=== PATIENT | male | born 1935 | race Caucasian/White ===

== ENCOUNTER 2017-08-12 12:41 | Outpatient (CLI) | payer MEDICARE ==
--- NOTE | 2017-08-12 15:53 | MRI ---
MRI LUMBAR SPINE WITHOUT CONTRAST 08/12/17 Multiplanar and multisequential imaging lumbar spine obtained. HISTORY: Lumbar radiculopathy. Right hip pain and right lower extremity radiation. Lumbar vertebrae maintain height and alignment. There are degenerative disc changes at all levels. D egenerative osteophytes in the lumbar vertebrae. At L1-2, no disc bulge or protrusion. Mild facet arthrosis. No central canal or foraminal stenosis. At L2-3, annular fissure seen to the left of midline with broad based disc bulge and small protrusio n laterally to the left which does encroach into the left foramina. Facet hypertrophy. Mild central canal stenosis. At L3-4, mild diffuse disc bulge. Facet and ligamentous hypertrophy. Mild to moderate central canal stenosis. Bilateral foraminal narrowing due to disc bulge and facet hypertrophy. At L4-5, broad based disc bulge is more prominent. Facet hypertrophy is prominent. Severe central ca nal stenosis is present. Foramina are relatively well preserved. At L5-S1, diffuse disc bulge. Facet hypertrophy. No central canal stenosis. There is asymmetric disc osteophyte complex projecting to the right which appears to contact the lateral right L5 nerve root . There is a small disc osteophyte which projects inferiorly from the disc to the right of midline. Ju st inferior to the disc on axial images, this measures 8 to 9 mm AP dimension. This does displace th e traversing right S1 nerve root as seen on axial images. IMPRESSION: 1. Severe central canal stenosis at L4-5 as described above. 2. Broad based bulge at L5-S1 is seen. There is an inferior disc osteophyte projecting to the r ight of midline displacing the traversing right S1 nerve root within the canal. There is also disc o steophyte complex projecting laterally to the right at this level as described above. 3. Mild to moderate central canal stenosis at L3-4 as described. POS: [facility]
== END 2017-08-12 12:42 | disposition home or self-care (01) ==
LOC: TBSIIMAG 12:41
PROVIDERS: ATTEND Neurological Surgery
DX: M51.17 Intervertebral disc disorders with radiculopathy, lumbosacral region (principal); M48.061 Spinal stenosis, lumbar region without neurogenic claudication
CPT/HCPCS: 72148

== ENCOUNTER 2018-07-14 13:04 | Outpatient (CLI) | payer MEDICARE ==
--- NOTE | 2018-07-14 14:03 | RAD ---
LUMBAR SPINE SERIES THREE VIEWS WITH FLEXION AND EXTENSION: History: Back pain. Weakness in both legs. FINDINGS: The bones are demineralized. Vertebroplasty changes and compression changes of L4 are present with mi nimal bony retropulsion. There is very limited motion on either the flexion or extension views on thi s exam. Degenerative osteophyte changes are seen along the course of the spine. IMPRESSION: 1. Degenerative facet changes and moderate arthritic changes of the spine. 2. Vertebroplasty changes. Compression changes of L4. Limited motion was obtained on either of the fl exion or extension views. POS: [facility]
--- NOTE | 2018-07-14 14:48 | MRI ---
MRI LUMBAR SPINE: Date: 07-14-18 Provided Clinical History: Lumbar stenosis with claudication. FINDINGS: Comparison is made with the CT examination dated 04-01-18. Five lumbar vertebral bodies are again noted. Lumbar alignment is unchanged. Compression deformity in volving L4 is redemonstrated. Interval vertebroplasty change. Persistent marrow edema. Regional marro w signal appears otherwise unremarkable. Conus medullaris is normal in signal and terminates at an ap propriate level. Probable cyst involving the left kidney. L1-2: There is bilateral facet arthritis without significant central canal or foraminal stenosis appa rent. L2-3: There is disc space height loss and a broad based disc bulge with bilateral facet arthritis. Th ere is no significant central canal stenosis apparent. There is no significant foraminal narrowing ap parent. L3-4: There is a broad based disc bulge and bilateral facet arthritis. There is slight retropulsion o f the posterior cortex of the L4 vertebral body. These changes produce severe central canal stenosis. There is mild left foraminal narrowing. L4-5: There is a broad based disc bulge and bilateral facet arthritis. There is severe central canal stenosis. There is no significant foraminal narrowing apparent. L5-S1: There is bilateral facet arthritis and a broad based disc bulge without significant central ca nal or foraminal narrowing apparent. IMPRESSION: 1. Status post L4 vertebral plasty with persistent marrow edema. 2. Advanced multilevel lumbar degenerative changes producing areas of severe canal stenosis as descri bed above. POS: [facility]
== END 2018-07-14 13:05 | disposition home or self-care (01) ==
LOC: TBSIIMAG 13:04
PROVIDERS: ATTEND Neurological Surgery
DX: M48.062 Spinal stenosis, lumbar region with neurogenic claudication (principal); M47.896 Other spondylosis, lumbar region; M46.96 Unspecified inflammatory spondylopathy, lumbar region; M46.97 Unspecified inflammatory spondylopathy, lumbosacral region; Z98.890 Other specified postprocedural states
CPT/HCPCS: 72100; 72148

== ENCOUNTER 2018-08-16 06:21 | Inpatient (IN) | payer MEDICARE ==
[2018-08-15 11:33] VITALS: BMI 27.0
[2018-08-16] MEDS ORDERED: Levofloxacin 500 mg/D5W 100 ml Premix Bag ONE (08:04)
[2018-08-16] MEDS ORDERED: Clindamycin/D5W 900 mg/50 ml Premix Bag ONE (08:04)
[2018-08-16] MEDS ORDERED: Sodium Chloride 0.9% 10 ML ONE (08:15)
[2018-08-16] MEDS ORDERED: Fentanyl 100 MCG/2 ML VIAL ONE ×4 (09:06→12:16)
[2018-08-16] MEDS ORDERED: Meperidine HCl/PF 25 MG/ML VIAL SLOW IVP PRN (10:30)
[2018-08-16] MEDS ORDERED: Promethazine HCl 25 MG/ML VIAL SLOW IVP PRN (10:30)
[2018-08-16] MEDS ORDERED: Promethazine HCl 25 MG/ML VIAL IM PRN ×2 (10:30→12:02)
[2018-08-16] MEDS ORDERED: Milk Of Magnesia 30 ML UDCUP PO PRN (12:02)
[2018-08-16] MEDS ORDERED: diphenhydrAMINE 50 MG/ML VIAL IVP PRN (12:02)
[2018-08-16] MEDS ORDERED: Promethazine HCl 12.5 MG SUPP PR PRN (12:02)
[2018-08-16] MEDS ORDERED: diphenhydrAMINE 25 MG CAP PO PRN (12:02)
[2018-08-16] MEDS ORDERED: HYDROcodone/Acetaminophen 10/325 mg Tablet PO PRN ×2 (12:02)
[2018-08-16] MEDS ORDERED: tiZANidine HCl 4 MG TAB PO PRN (12:02)
[2018-08-16] MEDS ORDERED: Promethazine 25 MG TAB PO PRN (12:02)
[2018-08-16] MEDS ORDERED: traMADol HCl 50 MG TAB PO PRN ×2 (12:02)
[2018-08-16] MEDS ORDERED: Morphine 4 MG/ML VIAL SLOW IVP PRN (12:02)
[2018-08-16] MEDS ORDERED: Mag-Al 1200 mg/1200 mg/30 ML UDCUP PO PRN (12:02)
[2018-08-16] MEDS ORDERED: Ondansetron PF 4 MG/2 ML Vial SLOW IVP PRN (12:03)
--- NOTE | 2018-08-16 13:26 | OP ---
DATE OF PROCEDURE: 08/16/2018 SURGEON: Justino Figueredo M.D. BELLHOP: Christie Sosa PA-C. PROCEDURES: L3-L5 laminectomies, posterolateral arthrodesis L3-L5, pedicle screw instrumentation, de mineralized bone matrix, local morselized autograft L3-L5. PROCEDURE IN DETAIL: The patient was brought to the operating room and intubated. He was rolled in the prone position on gel-filled chest rolls. Incision was made exposing L3 through L5 and our level was confirmed by x-ray. We performed complete L5, complete L4 and inferior L3 laminectomies. A com plete decompression was achieved. We then placed pedicle screws at right L5 and right L3 using later al fluoroscopic guidance and the positioning was confirmed with rotational x-ray. A sreedhar was secured between the screws, connected by nuts, which were final tightened. The wound was then extensively ir rigated. Immaculate hemostasis was secured. A combination of demineralized bone matrix and local mo rselized autograft was laid over the posterolateral surfaces bilaterally for the purpose of arthrodes is. Vancomycin powder was applied and the wound was then closed in anatomic layers.
[2018-08-16] MEDS: Sodium Chloride 0.9% 1,000 ML IV SCH (14:04)
[2018-08-16] MEDS: Clindamycin/D5W 900 MG in Premix Bag 1 BAG IVPB SCH ×2 (14:07→21:47)
[2018-08-16] MEDS ORDERED: hydrALAZINE 20 MG/ML VIAL SLOW IVP PRN (14:22)
[2018-08-16] MEDS ORDERED: Cepastat Lozenges 1 LOZ PO PRN (14:22)
[2018-08-16] MEDS ORDERED: Sodium Chloride 0.65% Nasal 44 ML BOT EA NARE PRN (14:22)
[2018-08-16] MEDS ORDERED: Temazepam 15 MG CAP PO PRN (14:22)
[2018-08-16] MEDS ORDERED: Diabetic Tussin 200 MG/10 ML UDCUP PO PRN (14:22)
[2018-08-16] MEDS ORDERED: Eucerin (Mineral Oil/Petrolatum,White) 30 gm Jar TOP PRN (14:22)
[2018-08-16] MEDS ORDERED: Loperamide HCl 2 MG CAP PO PRN (14:22)
[2018-08-16] MEDS ORDERED: Senokot S 8.6-50 MG TAB PO PRN (14:22)
[2018-08-16] MEDS ORDERED: Artificial Tear Sol 15 ML BOT EA EYE PRN (14:22)
[2018-08-16] MEDS ORDERED: HYDROcodone/Acetaminophen 5/325 mg Tablet PO PRN (14:22)
[2018-08-16] MEDS ORDERED: Bisacodyl 10 MG SUPP PR PRN (14:22)
--- NOTE | 2018-08-16 15:04 | CON ---
DATE OF CONSULTATION: 08/16/2018 PRIMARY CARE PHYSICIAN: Dr. Lennox Beltran in [place]. PRIMARY ATTENDING: Justino Figueredo M.D. REASON FOR CONSULT: Medical comanagement. REASON FOR ADMISSION: Elective admission for L3-L5 laminectomy. HISTORY OF PRESENT ILLNESS: An 83-year-old male who has underlying history of coronary artery diseas e who has chronic low back pain with radicular symptoms. He has underlying history of lumbar stenosi s and radiculopathy. The patient was managed by Dr. Nunez as an outpatient basis and he had ep idural steroid injection. The patient reports that this is also gradually not effective and his back pain was gradually getting worse and affecting his quality of life. The patient was referred to [facility] and the patient had MRI as an outpatient basis as well as CT lumbar spine he had before. T he patient was electively admitted today for surgery. The patient underwent L3-L5 laminectomy, posterolateral arthrodesis L3-L5 and pedicle screw instrumen tation. Postoperatively, the patient was transferred to surgical floor. At that point, we were cons ulted for medical comanagement. At this point, the patient reports that he is feeling hungry, but he does not have any chest pain, pa lpitation, shortness of breath. He does have mild low back pain at surgery site and he has drain in place. He denies any constipation, diarrhea. He denies any abdominal pain. The patient reports jasmin t he did not take any his medicine today before surgery. REVIEW OF SYSTEMS: The following complete review of systems was negative, unless otherwise mentioned in the HPI or below: Constitutional: Weight loss or gain, ability to conduct usual activities. Sk in: Rash, itching. Eyes: Double vision, pain. ENT/Mouth: Nose bleeding, neck stiffness, pain, te nderness. Cardiovascular: Palpitations, dyspnea on exertion, orthopnea. Respiratory: Shortness of breath, wheezing, cough, hemoptysis, fever or night sweats. Gastrointestinal: Poor appetite, abdom inal pain, heartburn, nausea, vomiting, constipation, or diarrhea. Genitourinary: Urgency, frequenc y, dysuria, nocturia. Musculoskeletal: Pain, swelling. Neurologic/Psychiatric: Anxiety, depressio n. Allergy/Immunologic: Skin rash, bleeding tendency. Please see my HPI for pertinent positive and negative. All other review of system reviewed and negative except as mentioned in the HPI. PAST MEDICAL HISTORY: Coronary artery disease, history of prostate cancer, hypertension, dyslipidemi a, history of PVCs, lumbar stenosis with radiculopathy. PAST SURGICAL HISTORY: Appendicectomy, tonsillectomy, status post lumbar laminectomy, cardiac cathet erization in 2012 showed 3-vessel coronary artery disease. PAST PSYCHIATRIC HISTORY: Reviewed and negative. FAMILY HISTORY: Positive for coronary artery disease among several family members. ALLERGIES: PENICILLIN. CURRENT HOME MEDICATIONS: Nitroglycerin 0.4 mg sublingual p.r.n., aspirin 81 mg daily, Lipitor 80 mg p.o. at bedtime, multivitamin 1 tablet p.o. daily, fish oil 1 capsule daily, Metamucil daily, ramipr il 5 mg p.o. b.i.d., Coenzyme Q10 100 mg p.o. daily. SOCIAL HISTORY: The patient is and lives at home with family. No history of tobacco, alcoho l or illicit drug abuse. PHYSICAL EXAMINATION: VITAL SIGNS: Currently, blood pressure 110/70, pulse 72, respiratory rate 18, weight 192 pounds. GENERAL: The patient is currently alert and awake, in no obvious acute distress. HEAD: Normocephalic, atraumatic. EYES: Pupils round and reactive to light. Extraocular muscle intact. ENT: Oropharynx within normal limits. Moist mucous membranes. No oral lesion, no pharyngeal erythe ma, no exudate. NECK: Supple. No JVD, no thyromegaly, no carotid bruit. LUNGS: Clear to auscultation without any rhonchi or rales. CARDIAC: S1, S2 regular. No murmur, no gallop, no rub. ABDOMEN: Soft, bowel sounds present, nontender, nondistended. No organomegaly, no mass, no suprapub ic tenderness. BACK: Unremarkable. No CVA tenderness. EXTREMITIES: Upper extremities, passive movement of all joints are normal. Lower extremities, no ed sidney. Good distal pulsation. BACK: Drain in place. Surgical site covered with a dressing. NEUROLOGIC: Nonfocal examinations. HEMATOLOGIC: No lymphadenopathy. PSYCHIATRIC: Normal affect. SIGNIFICANT LABORATORY DATA: The patient does not have any recent labs at this point. Decisiv report reviewed. ASSESSMENT AND PLAN: 1. Status post lumbar laminectomy with L3-L5 laminectomy for lumbar stenosis and radiculopathy. The patient will be managed by primary team. The patient has drain in place. Drain care will defer to primary team. PT, OT and pain control while in hospital. 2. Hypertension, currently well controlled. If blood pressure permits, then we will continue ramipr il 5 mg p.o. b.i.d. We will hold his antihypertensive medication for blood pressure less than 120 sy stolic. 3. Dyslipidemia. Continue Lipitor 80 mg p.o. at bedtime. 4. Coronary artery disease, stable without any angina. We will hold aspirin because of back surgery . Continue nitroglycerin p.r.n. basis along with statin therapy. 5. Deep venous thrombosis prophylaxis, SCD boots. 6. Gastrointestinal prophylaxis, Pepcid 20 mg p.o. b.i.d. 7. Code status, the patient is full code. The patient's is surrogate decision maker. Disposition plan based on clinical course. Thank you for the consult. We will follow up with you while in hospital.
[2018-08-16] MEDS ORDERED: PROPOFOL 200 MG/20 ML VIAL ONE (17:48)
[2018-08-16] MEDS ORDERED: Dexamethasone 20 MG/5 ML VIAL ONE (17:48)
[2018-08-16] MEDS ORDERED: ePHEDrine/0.9% NaCl/PF SYRINGE 50 mg/10 ml ONE (17:48)
[2018-08-16] MEDS ORDERED: PHENYLEPHRINE-NS 100 MCG/ML 10 ML SYRINGE ONE (17:48)
[2018-08-16] MEDS ORDERED: Glycopyrrolate 0.2 MG/ML 5 ML SYRINGE ONE (17:48)
[2018-08-16] MEDS ORDERED: Ondansetron PF 4 MG/2 ML Vial ONE (17:48)
[2018-08-16] MEDS ORDERED: Lidocaine 1% PF 5 ML VIAL ONE (17:48)
[2018-08-16] MEDS: Famotidine 20 MG TAB PO SCH (21:47)
[2018-08-17] MEDS: Sodium Chloride 0.9% 1,000 ML IV SCH ×2 (04:34→04:35)
--- NOTE | 2018-08-17 07:21 | DIS ---
ATTENDING PHYSICIAN: Dr. Jutsino Figueredo DATE OF ADMISSION: 08/16/2018 DATE OF DISCHARGE: 08/17/2018 HOSPITAL COURSE: The patient is an 83-year-old male status post L3-L5 decompression and fu robert. Today is postoperative day #1. Overnight, the patient was admitted to the Med/Surgical floor where his pain was well controlled with p.o. medications, he was tolerating regular diet, and he was voiding appropriately. DOMITILA with drain was placed intraoperatively and has had 1095 mL out over the la st 12 hours. The patient has been up ambulating easily throughout the department. I am seeing the p atient at the bedside. He has no complaints at this time. The patient is sitting in the bed comfortably, awake, alert, no acute distress. He has free active r keshav of motion of all extremities. He has no focal neurologic deficits. His dressing is dry and int act. Incision is intact. We will plan to dismiss the patient to home. I have discussed home care and the patient has been pro vided with a TLSO brace, which he should wear for all out of bed activities. I have also provided th e patient with scripts for hydrocodone, Zanaflex and clindamycin. We will follow up the patient was in 2 weeks with x-rays. Please reach out to Neurosurgery for additional questions or concerns.
[2018-08-17 08:07] VITALS: BP 118/69
[2018-08-17] MEDS: Famotidine 20 MG TAB PO SCH (08:28)
--- NOTE | 2018-08-17 09:24 | PDOC.PN ---
- Subjective Encounter Start Date: 08/17/18 Encounter Start Time: 06:50 -: old records requested/rev Patient seen and examined. No new complaints. No overnight events - Objective Resuscitation Status: Resuscitation Status FULL:Full Resuscitation MAR Reviewed: Yes Vital Signs & Weight: Vital Signs (12 hours) Temp Pulse Resp BP Pulse Ox 08/17/18 08:00 93 L 08/17/18 07:11 97.4 F L 79 20 118/69 93 L 08/17/18 03:56 98.1 F 62 16 94/61 94 L 08/16/18 23:13 97.5 F L 64 16 97/63 92 L Weight Weight 194 lb I&O: 08/16/18 08/17/18 08/18/18 06:59 06:59 06:59 Intake Total 1500 Output Total 45 Balance 1455 Phys Exam - Physical Examination Constitutional: NAD HEENT: PERRLA, moist MMs, sclera anicteric Neck: no JVD, supple Respiratory: no wheezing, no rales, no rhonchi Cardiovascular: RRR, no significant murmur, no rub Gastrointestinal: soft, non-tender, no distention, positive bowel sounds Musculoskeletal: no edema, pulses present Neurological: non-focal, normal sensation, moves all 4 limbs Psychiatric: normal affect, A&O x 3 Skin: no rash, normal turgor Dx/Plan (1) S/P lumbar laminectomy Code(s): Z98.890 - OTHER SPECIFIED POSTPROCEDURAL STATES Status: Acute (2) CAD (coronary artery disease) Code(s): I25.10 - ATHSCL HEART DISEASE OF [place] CORONARY ARTERY W/O ANG PCTRS Status: Chronic (3) Dyslipidemia Code(s): E78.5 - HYPERLIPIDEMIA, UNSPECIFIED Status: Chronic (4) Hypertension Code(s): I10 - ESSENTIAL (PRIMARY) HYPERTENSION Status: Chronic (5) Lumbar stenosis with neurogenic claudication Code(s): M48.062 - SPINAL STENOSIS, LUMBAR REGION WITH NEUROGENIC CLAUDICATION Status: Chronic - Plan cont current plan of care, plan discussed w/ family * medication reviewed as below * symptomatic treatment * stable for discharge * resume home meds on discharge Review of Systems - Review of Systems ENT: negative: Ear Pain, Ear Discharge, Nose Pain, Nose Discharge, Nose Congestion, Mouth Pain, Mouth Swelling, Throat Pain, Throat Swelling, Other Respiratory: negative: Cough, Dry, Shortness of Breath, Hemoptysis, SOB with Excertion, Pleuritic Pain, Sputum, Wheezing Cardiovascular: negative: chest pain, palpitations, orthopnea, paroxysmal nocturnal dyspnea, edema, light headedness, other Gastrointestinal: negative: Nausea, Vomiting, Abdominal Pain, Diarrhea, Constipation, Melena, Hematochezia, Other Genitourinary: negative: Dysuria, Frequency, Incontinence, Hematuria, Retention , Other Musculoskeletal: negative: Neck Pain, Shoulder Pain, Arm Pain, Back Pain, Hand Pain, Leg Pain, Foot Pain, Other Skin: negative: Rash, Lesions, Anival, Bruising, Other - Medications/Allergies Allergies/Adverse Reactions: Allergies Allergy/AdvReac Type Severity Reaction Status Date / Time Penicillins Allergy Verified 08/15/18 11:33 Medications: Current Medications Hydrocodone Bitart/Acetaminophen ([place] 10/325) 1 tab PO Q4H PRN PRN Reason: PAIN (1-3) Last Admin: 08/16/18 14:12 Dose: 1 tab Hydrocodone Bitart/Acetaminophen ([place] 10/325) 2 tab PO Q4H PRN PRN Reason: PAIN (4-6) Hydrocodone Bitart/Acetaminophen ([place] 5/325) 1 tab PO Q4H PRN PRN Reason: Moderate Pain (4-6) Al Hydroxide/Mg Hydroxide (Maalox) 30 ml PO Q4H PRN PRN Reason: Heartburn or Indigestion Artificial Tears (Tears Renewed 15ml Bottle) 2 drop EA EYE PRN PRN PRN Reason: Dry Eyes Bisacodyl (Dulcolax) 10 mg MD DAILYPRN PRN PRN Reason: Constipation Diphenhydramine HCl (Benadryl) 25 mg PO Q6H PRN PRN Reason: Itching Diphenhydramine HCl (Benadryl) 25 mg IVP Q6H PRN PRN Reason: Itching Famotidine (Pepcid) 20 mg PO BID HAN Last Admin: 08/17/18 08:28 Dose: 20 mg Guaifenesin (Robitussin Sf) 200 mg PO Q4H PRN PRN Reason: Cough Hydralazine HCl (Apresoline) 10 mg SLOW IVP Q4H PRN PRN Reason: SBP > 180 and HR < 70 Sodium Chloride (Normal Saline 0.9%) 1,000 mls @ 75 mls/hr IV .[id number] [facility] Last Admin: 08/17/18 04:35 Dose: Not Given Loperamide HCl (Imodium) 2 mg PO PRN PRN PRN Reason: Diarrhea/Loose Stools Magnesium Hydroxide (Milk Of Magnesium) 30 ml PO Q12H PRN PRN Reason: Constipation Mineral Oil/White Petrolatum (Eucerin Cream) 0 gm TOP BIDPRN PRN PRN Reason: Dry Skin Morphine Sulfate (Morphine) 2 mg SLOW IVP Q1H PRN PRN Reason: Moderate Breakthrough Pain Morphine Sulfate (Morphine) 4 mg SLOW IVP Q1H PRN PRN Reason: SEVERE BREAKTHROUGH PAIN Ondansetron HCl (Zofran) 4 mg SLOW IVP Q8H PRN PRN Reason: Nausea Promethazine HCl (Phenergan) 12.5 mg IM Q4H PRN PRN Reason: Nausea/Vomiting Promethazine HCl (Phenergan) 12.5 mg PO Q4H PRN PRN Reason: Nausea/Vomiting Promethazine HCl (Phenergan Suppository) 12.5 mg MD Q4H PRN PRN Reason: Nausea/Vomiting Senna/Docusate Sodium (Senokot S) 2 tab PO BID PRN PRN Reason: Constipation Sodium Chloride (Flush - Normal Saline) 10 ml IVF PRN PRN PRN Reason: Saline Flush Sodium Chloride ([place] Nasal [place] 0.65%) 0 ml EA NARE QIDPRN PRN PRN Reason: Nasal Congestion Temazepam (Restoril) 15 mg PO HSPRN PRN PRN Reason: Insomnia Throat Lozenges (Cepastat Lozenges) 1 monty PO Q2H PRN PRN Reason: Sore Throat Tizanidine HCl (Zanaflex) 4 mg PO Q6H PRN PRN Reason: MUSCLE SPASM Tramadol HCl (Ultram) 50 mg PO Q6H PRN PRN Reason: PAIN (1-3) Tramadol HCl (Ultram) 100 mg PO Q6H PRN PRN Reason: PAIN (4-6)
--- NOTE | 2018-08-17 10:40 | DIS ---
DATE OF ADMISSION: 08/16/2018 DATE OF DISCHARGE: 08/17/2018 Please see discharge summary dictated by Christie Sosa PA-C. HOSPITAL COURSE: This patient was admitted by neurosurgeon for a laminectomy, which was done on 07/20 and after surgery, Sound Team was consulted for medical management. Patient's medical problem remains stable. We continued his home medication while in hospital as well as upon discharge. Drai n was removed earlier today and his surgical site is clean and healthy. The patient is seen and exam ined at bedside today. Please see my progress note from today for further detail.
[2018-08-17 10:45] VITALS: TEMP 97.3
== END 2018-08-17 10:55 | disposition home or self-care (01) | DRG 460 ==
LOC: SURG A 06:21
PROVIDERS: ADMIT Neurological Surgery; ATTEND Neurological Surgery
PROC: 0SG1071 Fusion of 2 or more Lumbar Vertebral Joints with Autologous Tissue Substitute, Posterior Approach, Posterior Column, Open Approach (ICD-10-PCS; principal; 2018-08-16)
PROC: 00NY0ZZ Release Lumbar Spinal Cord, Open Approach (ICD-10-PCS; 2018-08-16)
DX: M48.062 Spinal stenosis, lumbar region with neurogenic claudication (principal); I25.10 Atherosclerotic heart disease of native coronary artery without angina pectoris; I10 Essential (primary) hypertension; E78.5 Hyperlipidemia, unspecified; M54.5 Low back pain; G89.29 Other chronic pain; Z88.0 Allergy status to penicillin; Z79.82 Long term (current) use of aspirin; I25.2 Old myocardial infarction; Z85.46 Personal history of malignant neoplasm of prostate; Z95.5 Presence of coronary angioplasty implant and graft; Z82.49 Family history of ischemic heart disease and other diseases of the circulatory system
CPT/HCPCS: 76001; C1713; C1768; G8978-GP-CJ; G8979-GP-CJ; G8980-GP-CJ; J0131; J1100; J1200; J1956; J2001; J2405; J2704; J3010; J3370; J3490

== ENCOUNTER 2018-08-31 15:55 | Outpatient (CLI) | payer MEDICARE ==
--- NOTE | 2018-08-31 17:41 | RAD ---
LUMBAR SPINE 2-3 VIEW RADIOGRAPH SERIES: 08/31/18 INDICATION: Prior lumbar spine surgery, followup. Reference mad to 07/14/18. FINDINGS: Redemonstration of vertebroplasty with associated height loss from prior compression fracture at L4. There has been interval placement of posterior right fixation hardware with right pedicle screw of L3 and L5 with a right side vertical connecting sreedhar. Overlying skin bob are present. There is ather osclerosis. IMPRESSION: Interval hardware stabilization about previous fracture/vertebroplasty of L4, with hardware spanning posterior right elements of L3 and L5. There is no acute hardware complication seen. POS: [facility]
== END 2018-08-31 15:56 | disposition home or self-care (01) ==
LOC: TBSIIMAG 15:55
PROVIDERS: ATTEND Neurological Surgery
DX: M48.062 Spinal stenosis, lumbar region with neurogenic claudication (principal); Z98.890 Other specified postprocedural states
CPT/HCPCS: 72100

== ENCOUNTER 2018-10-20 15:02 | Outpatient (CLI) | payer MEDICARE ==
--- NOTE | 2018-10-20 17:00 | RAD ---
TWO VIEWS LUMBAR SPINE 10/20/18 HISTORY: Compression fracture. Followup postsurgical changes. COMPARISON: 08/31/18. FINDINGS: Again noted are vertebroplasty changes involving the L4 vertebral body fracture. Again noted is evide nce of posterior fusion with unilateral right sided pedicular screws in the L3 and L5 vertebral jourdan s with posterior sreedhar. Laminectomy defects are seen at the L3-4 and L4-5 levels. No hardware complicat ion is seen. There are degenerative changes again present in the lumbar spine. Previously noted overl [place] skin bob have been removed. Prominent vascular calcifications are seen. Calcifications overl ie the right upper quadrant probably related to gallbladder calculi. IMPRESSION: Stable postsurgical changes lumbar spine with hardware stabilization of previous L4 vertebral body fr acture with evidence of vertebroplasty involving the fracture. Views of the lumbar spine are stable f rom prior study. POS: [facility]
== END 2018-10-20 15:03 | disposition home or self-care (01) ==
LOC: TBSIIMAG 15:02
PROVIDERS: ATTEND Neurological Surgery
DX: M48.56XA Collapsed vertebra, not elsewhere classified, lumbar region, initial encounter for fracture (principal); M48.061 Spinal stenosis, lumbar region without neurogenic claudication; Z98.1 Arthrodesis status
CPT/HCPCS: 72100

== ENCOUNTER 2019-01-24 13:21 | Outpatient (CLI) | payer MEDICARE ==
--- NOTE | 2019-01-24 15:13 | RAD ---
TWO VIEWS LUMBAR SPINE: Date: 01-24-19 Comparison: 10-20-18 History: Spinal stenosis, prior back surgery. FINDINGS: There is a right sided L3 and L5 pedicle screw with a vertically oriented interlocking sreedhar. Hardware appears stable when compared to the prior exam. There is a severe wedge compression fracture of L4 wi th hypoplasty changes, stable when compared to the prior exam. Multilevel lower lumbar spine facet hy pertrophy change noted. No anterolisthesis or retrolisthesis. There is atherosclerotic calcification of the abdominal aorta. On frontal imaging there is the suggestion of lucency involving the right ped icle screw at L3 which is felt to likely represent artifact as no correlate is seen on the lateral vi ew. IMPRESSION: Stable appearance of the lumbar spine as detailed above. POS: [facility]
== END 2019-01-24 13:22 | disposition home or self-care (01) ==
LOC: TBSIIMAG 13:21
PROVIDERS: ATTEND Neurological Surgery
DX: M48.061 Spinal stenosis, lumbar region without neurogenic claudication (principal); S32.040D Wedge compression fracture of fourth lumbar vertebra, subsequent encounter for fracture with routine healing; I70.0 Atherosclerosis of aorta; Z98.890 Other specified postprocedural states
CPT/HCPCS: 72100